=== PATIENT | female | born 1985 | race Caucasian/White ===

== ENCOUNTER 2016-12-03 21:01 | Observation (INO) | payer OTHER ==
[~2016-12-03] VITALS: Ht 165.1 cm; Wt 148.1 kg
[~2016-12-03 21:01] MED LIST: FERR1TAB25 PO
--- NOTE | 2016-12-03 21:04 | NUR ---
DR DR SHINE AT BEDSIDE
[2016-12-03] MEDS ORDERED: NORMAL SALINE 1,000 ML IV ONE (21:09)
--- NOTE | 2016-12-03 21:10 | ERPDOC ---
Departure Disposition Decision Date: Dec 03, 2016 Disposition Decision Time: 22:30 Disposition: 02 [place] [facility] [place] [facility] [place] Impression Impression: Primary Impression: Sinus tachycardia Severity: Moderate Condition: Improved Seen By: Physician only Referrals: KRISTA BALIEY MD (Family) Problems/Meds/Labs Reviewed?: Yes Medications reviewed and manag: Yes Follow up care ordered?: Yes Mental Status: Alert, Oriented Scripts Metoprolol Tartrate (Metoprolol Tartrate) 25 Mg Tablet 25 MG PO BIDWM, #60 TAB 6 Refills Prov: FERNANDO GARCIA APRN 12/04/16 Cephalexin (Cephalexin) 500 Mg Capsule 500 MG PO Q12HR for 7 Days, #14 CAP Prov: FERNANDO GARCIA APRN 12/04/16 HPI - Cardiac General Stated Complaint: FAST HEART RATE Time Seen by Provider: 21:03 Source: patient, family Exam Limitations: no limitations HPI - Cardiac General Initial Comments 31yo woman presents to the ER for a fast heart rate. Pt was at home eating, when she had a sudden onset of nausea, palpitations, and a 'funny feeling'. Pt has a h/o tachycardia once before - is not sure how it was treated, but has not had a recurrence since. Denies EtOH and drugs. Occurred At: home Onset/Timing: Rapid Duration: 1 hr Activities at Onset/Context: during/after eating Prior CP/Workup: other Nitro Today/Relief: no nitro taken today Aspirin Today: contraindicated Associated Symptoms: malaise, shortness of breath, weakness Hx of Similar Symptoms: Yes Allergies: Coded Allergies: No Known Allergies (Unverified , 07/16/12) Past History Past Medical History Metabolic: hypertension Cardiac: PSVT Female: UTI Musculoskeletal: back pain Review of Systems Constitutional Constitutional: weakness Cardiovascular Cardiac: dyspnea on exertion Rhythm/Rate: palpitations, tachycardia All other Systems All Other Systems: Reviewed and Negative Physical Exam General General Nourishment: well nourished, well developed, appears stated age, adult , obese, acute distress General Body Habitus: well groomed Vitals and Pain First Documented Vital Signs Date Time Temp Pulse Resp B/P Pulse Ox O2 Delivery O2 Flow Rate FiO2 12/03/16 21:03 100.0 227 20 166/81 98 Room Air 12/03/16 21:07 2.00 Weight: Kilograms: Height (feet): Height (inches): Triage Pain Scale: RN VS reviewed by Provider: Yes Normal Exams: Head: Normocephalic w/o trauma Eyes: Pupils are PERRLA w/ EOMI, No scleral icterus, irritation ENMT: No facial trauma, nasal exudates, pharyngeal erythema Neck: Full range of motion, without adenopathy, JVD Chest/Resp: Clear all traore, with good airflow, and symmetry bilaterally Abdomen: Bowel sounds positive, soft, non-tender, non-distended Lymphatic: No lymphadenopathy Musculoskeletal: No tenderness, or deformity noted Integumentary: No rashes, hives, or bruising noted Neurologic: Patient is alert, and oriented Psychiatric: Patient exhibits, appropriate attention Cardiovascular (brief) Cardiac: FOUND: regular rhythm, NOT FOUND: click, gallop, murmur, pedal edema, peripheral edema, regular rate, rub Capillary Refill: <2 sec Pulses: all distal extremities, equal, strong Differential Diagnoses Considering: Acute NH, Anxiety/Panic, Angina, Atrial Fibrillation, Pericarditis , PSVT, Pulmonary Edema, Pulmonary Embolus, WPW Progress Results/Orders Orders Procedure Category Date Status Time Cbc W/Auto LAB 12/03/16 Complete Diff-Reflex Manual 21:09 Bmp - Basic Metabolic LAB 12/03/16 Complete Panel 21:09 Tsh - Thyroid Stim LAB 12/03/16 Complete Hormone 21:09 Troponin I W LAB 12/03/16 Complete Hemolysis Index 21:09 Magnesium LAB 12/03/16 Complete 21:09 EKG EKG 12/03/16 Taken 21:09 Iv Lock (Ed Only) EDM 12/03/16 Transmitted 21:09 Nothing By Mouth (Ed EDM 12/03/16 Transmitted Only) 21:09 Oxygen Administration EDM 12/03/16 Transmitted 21:09 Normal Saline (Normal PHA 12/03/16 Complete Saline Iv) 21:09 Diltiazem (Cardizem*) PHA 12/03/16 Complete Iv Bolus (Cardizem 21:15 Chest 1 View RAD 12/03/16 Resulted 21:09 EKG EKG 12/03/16 Taken 21:22 Adenosine (Adenocard) PHA 12/03/16 Complete 21:30 D-Dimer LAB 12/03/16 Complete 21:23 Lactate - Lactic Acid LAB 12/03/16 Complete Lactate - Lactic Acid LAB 12/04/16 Complete 01:53 Blood Culture EPI 12/03/16 In Process 21:25 Ceftriaxone I.V. (Er PHA 12/03/16 Complete Use Only) (Rocephin 21:30 Enoxaparin (Lovenox) PHA 12/03/16 Complete 21:30 LAB 12/03/16 Complete Qualitative, Serum 21:30 UA, LAB 12/03/16 Complete Dip&Micro(Complete) & 22:08 Urine Culture EPI 12/03/16 Complete 22:16 [address] In Facility: ED ADM 12/03/16 Transmitted Lab Results Laboratory Tests Test 12/03/16 21:24 12/03/16 21:25 12/03/16 22:08 D-Dimer 197NG/ML Plasma Lactate 2.2MMOL/L Human Chorionic Gonadotropin, Qual Negative White Blood Count 13.3T/MM3 Red Blood Count 4.80M/MM3 Hemoglobin 13.0GM/DL Hematocrit 40.2% Mean Corpuscular Volume 83.8UM3 Mean Corpuscular Hemoglobin 27.1UUG Mean Corpuscular Hemoglobin Concent 32.3GM/DL RDW Standard Deviation 45.1FL Platelet Count 315T/MM3 Mean Platelet Volume 10.7UM3 Immature Granulocyte % (Auto) 0.4% Neutrophils (%) (Auto) 56.7% Lymphocytes (%) (Auto) 33.4% Monocytes (%) (Auto) 7.7% Eosinophils (%) (Auto) 1.4% Basophils (%) (Auto) 0.4% Absolute Immature Granulocyte (auto 0.05T/MM3 Absolute Neutrophils (auto) 7.5T/MM3 Absolute Lymphocytes (auto) 4.4T/MM3 Absolute Monocytes (auto) 1.0T/MM3 Absolute Eosinophils (auto) 0.2T/MM3 Absolute Basophils (auto) 0.1T/MM3 Turbidity < 20 Sodium Level 143MEQ/L Potassium Level 3.9MEQ/L Chloride Level 103MEQ/L Carbon Dioxide Level 23MEQ/L Anion Gap 17MEQ/L Blood Urea Nitrogen 16.0MG/DL Creatinine 0.7MG/DL Glomerular Filtration Rate Calc 96 BUN/Creatinine Ratio 23RATIO Glucose Level 165MG/DL Calculated Osmolality 280MOSM/KG Calcium Level 9.6MG/DL Magnesium Level 2.0MG/DL Icterus Index < 2 Troponin I < 0.012ng/ml Thyroid Stimulating Hormone (TSH) 1.96MIU/L Chemistry Specimen Hemolysis < 15 Urine Collection Type Cleancatch-midstream Urine Color Tracie Urine Turbidity Sl cloudy Urine pH 5.5 Urine Specific [place] <=1.005 Urine Protein Negative Urine Glucose (UA) Negative Urine Ketones Negative Urine Blood Negative Urine Nitrite Negative Urine Bilirubin Negative Urine Urobilinogen 0.2EU/DL Urine Leukocyte Esterase 2+ Urine RBC 0-1/HPF Urine WBC 5-10/HPF Urine Squamous Epithelial Cells 10-20 Urine Bacteria Trace Urine Culture Indicated Cult not indicated Medications Current ED Medications Sodium Chloride (Normal Saline IV) 1,000 ml @ 0 mls/hr Q0M ONCE IV Last administered on 12/03/16 21:25; Start 12/03/16 at 21:09; Stop 12/03/16 at 21:11; Status DC Diltiazem HCl (Cardizem) 25 mg O ONCE IV Last administered on 12/03/16 21:16; Start 12/03/16 at 21:15; Stop 12/03/16 at 21:16; Status DC Adenosine 6 mg 6 mg O ONCE IV Last administered on 12/03/16 21:15; Start at 21:30; Stop 12/03/16 at 21:31; Status DC Ceftriaxone Sodium/Sodium Chloride (Rocephin/NS) 100 ml @ 100 mls/hr O ONCE IV Last administered on 12/03/16 21:51; Start 12/03/16 at 21:30; Stop 12/03/16 at 22:29; Status DC Enoxaparin Sodium (Lovenox) 120 mg O ONCE SQ Last administered on 12/03/16 21: 40; Start 12/03/16 at 21:30; Stop 12/03/16 at 21:31; Status DC Progress Progress Pt initially presented to the ER in sinus tachycardia to 230 BPMs. 6mg adenocard did not slow pts rate at all. Diltiazem was already drawn, so 25mg was given immediately after adenocard with drop in pts rate to 130 BPM as soon as diltiazem was fully infused. Pts rate continued to decrease to 120s. Contacted Dr. Reynoso, who agreed to admit pt and continue workup/treatment. EKG EKG #1: Rate: >100 Rhythm: sinus [place]: normal QRS: normal Intervals: normal ST/T: non-specific changes Interpreted by: signing physician EKG #2: Rate: >100 Rhythm: sinus [place]: normal QRS: normal Intervals: normal ST/T: non-specific changes Interpreted by: signing physician Consult/PCP Consult/PCP : Physician Contacted: Dr. Reynoso Time Called: 22:36 Time of first response: 22:38 Type of discussion: Admit Discussion/PCP Discussion Details Will admit pt. VIRAL SHINE DO Dec 03, 2016 21:09
[2016-12-03] MEDS ORDERED: DILTIAZEM 25mg/5ml INJECTION IV ONE (21:15)
--- NOTE | 2016-12-03 21:15 | NUR ---
MED/EDUCATION REVIEWED ADENOSINE WITH PT. THIS RN PREPARING TO ADMINISTER WITH ASSISTANCE OF WILLIAN CARRERA RN FLUSH. DR SHINE REMAINS AT BEDSIDE.
--- NOTE | 2016-12-03 21:16 | NUR ---
STATUS PTS HR 204-198, THEN RETURNS TO 206. PT EDUCATED REGARDING CARDIZEM. UNDERSTANDING VERBALIZED.
--- NOTE | 2016-12-03 21:21 | NUR ---
STATUS PTS HR 129, SINUS TACH. DR MAY REMAINS AT BEDSIDE.
[2016-12-03] MEDS ORDERED: CEFTRIAXONE I.V. (ER USE ONLY) 1 G in NORMAL SALINE 100 ML IV ONE (21:30)
[2016-12-03] MEDS ORDERED: ADENOSINE 6mg/2ml INJECTION vl IV ONE (21:30)
[2016-12-03] MEDS ORDERED: ENOXAPARIN 120 MG/0.8 ML INJECTION SQ ONE (21:30)
--- NOTE | 2016-12-03 21:31 | NUR ---
XRY PORTABLE XRY AT BEDSIDE.
--- NOTE | 2016-12-03 21:35 | NUR ---
TOOL DESIGNER AT BEDSIDE FOR BLOOD CX VENIPUNCTURE.
[2016-12-03 21:39] LABS: BASOPHILS # (AUTO) 0.1 T/MM3 (0-0.2); BASOPHILS % (AUTO) 0.4 % (0-2); EOSINOPHILS # (AUTO) 0.2 T/MM3 (0-0.5); EOSINOPHILS % (AUTO) 1.4 % (0-4); HCT - HEMATOCRIT 40.2 % (36-46); IMMATURE GRANULOCYTE # (AUTO) 0.05 T/MM3 (0.00-0.03); IMMATURE GRANULOCYTE % (AUTO) 0.4 % (0.0-0.5); LYMPHOCYTES # (AUTO) 4.4 T/MM3 (1-4.8); LYMPHOCYTES % (AUTO) 33.4 % (23-45); MEAN CORPUSCULAR HGB 27.1 UUG (26-34); MEAN CORPUSCULAR HGB CONC(MCHC 32.3 GM/DL (31-37); MEAN CORPUSCULAR VOLUME 83.8 UM3 (80-100); MEAN PLATELET VOLUME 10.7 UM3 (9.4-12.4); MONOCYTES % (AUTO) 7.7 % (0-9.0); NEUTROPHILS #(AUTO)-ABSOLUTE 7.5 T/MM3 (1.8-7.7); NEUTROPHILS % (AUTO) 56.7 % (33-66); WBC - WHITE BLOOD COUNT 13.3 T/MM3 (4.5-11.0)
[2016-12-03] MEDS ORDERED: METF10002 PO (21:54)
[2016-12-03] MEDS ORDERED: ESCI20TA30 PO (21:54)
[2016-12-03] MEDS ORDERED: LORA1TAB3 PO (21:54)
[2016-12-03] MEDS ORDERED: LISI1TAB11 PO (21:54)
[2016-12-03 21:56] LABS: ANION GAP 17 MEQ/L (5-15); BUN/CREATININE RATIO 23 RATIO (6-26); CALCIUM 9.6 MG/DL (8.4-10.2); CHLORIDE 103 MEQ/L (98-107); CO2 - CARBON DIOXIDE 23 MEQ/L (22-30); CREATININE 0.7 MG/DL (0.7-1.2); GLOMERULAR FILTRATION RATE 96; GLUCOSE 165 MG/DL (65-110); POTASSIUM 3.9 MEQ/L (3.6-5); SODIUM 143 MEQ/L (134-144)
[2016-12-03] MEDS ORDERED: BUTA-253 (21:56)
--- NOTE | 2016-12-03 22:08 | NUR ---
UP TO COMMODE/UA PT ASSISTED TO BEDSIDE COMMODE. WITH STANDING AND CLEANSING SELF PRIOR TO URINATING, PT'S HR INCREASED TO 157. PT VOIDED 400ML YELLOW CLOUDY URINE. SPECIMEN SENT TO LAB.
--- NOTE | 2016-12-03 22:08 | NUR ---
STATUS PT DENIES DIZZINESS, NAUSEA, SHORTNESS OF BREATH, PAIN AT THIS TIME.
[2016-12-03 22:12] LABS: BLOOD, URINE NEGATIVE (NEGATIVE); COLOR,URINE AMBER (YELLOW); LEUKOCYTE ESTERASE ,URINE 2+ (NEGATIVE); NITRITE,URINE NEGATIVE (NEGATIVE); UROBILINOGEN,URINE 0.2 EU/DL (NORMAL)
--- NOTE | 2016-12-03 22:16 | NUR ---
REPORT GIVEN TO SUE PERAZA. CARE ASSUMED.
[2016-12-03 22:21] LABS: BACTERIA,URINE TRACE (NEGATIVE); RBC,URINE 0-1 /HPF (0-3)
[2016-12-03 22:26] LABS: THYROID STIM HORMONE-TSH 1.96 MIU/L (0.47-4.68)
--- NOTE | 2016-12-03 23:20 | NUR ---
REPORT GIVEN TO RAINA ROGERS AT THIS TIME.
[2016-12-03 23:35] VITALS: BP 152/77; PULSE 121; RESP 18; TEMP 97.9; O2SAT 98; Ht 165.1 cm; Wt 148.1 kg
--- NOTE | 2016-12-03 23:35 | NUR ---
ARRIVAL PT ARRIVED TO ROOM 135 VIA ER CART, AMBULATED FROM CART TO BED. WILL CONTINUE TO MONITOR.
--- NOTE | 2016-12-03 23:35 | NUR ---
JIN PT IS TRANSFERRED VIA CART TO MEDICAL UNIT ROOM 135 AT THIS TIME, REMAINS ON MONITOR THROUGHOUT TRANSPORT. RAINA ROGERS IS AT BEDSIDE TO RESUME CARE ON ARRIVAL.
[2016-12-04] MEDS ORDERED: ZOLPIDEM 10 MG TABLET PO PRN (00:15)
[2016-12-04] MEDS ORDERED: DiphenhydrAMINE 25 MG CAPSULE PO PRN (00:15)
[2016-12-04] MEDS ORDERED: PRN ORDERS MC (00:15)
[2016-12-04] MEDS ORDERED: ACETAMINOPHEN 325 MG TABLET PO PRN (00:15)
[2016-12-04] MEDS ORDERED: ONDANSETRON 4 MG TABLET PO PRN (00:15)
--- NOTE | 2016-12-04 00:15 | NUR ---
RICKY NOTIFIED NOTIFIED Tavo GARCIA APRN THAT PT WAS ADMITTED AND NO ORDERS WERE IN PLACE. MEDS ORDERED, TELEMETRY, NO SCD'S AT THIS TIME, PT CAN HAVE A DRINK AND A SNACK AND THEN NPO AFTER THIS FOR POSSIBLE PROCEDURE IF NECESSARY. WILL CONTINUE TO MONITOR.
[2016-12-04 06:04] LABS: ANION GAP 8 MEQ/L (5-15); BUN/CREATININE RATIO 23 RATIO (6-26); CHLORIDE 108 MEQ/L (98-107); CO2 - CARBON DIOXIDE 29 MEQ/L (22-30); CREATININE 0.8 MG/DL (0.7-1.2); GLOMERULAR FILTRATION RATE 83; GLUCOSE 124 MG/DL (65-110); MAGNESIUM 2.3 MG/DL (1.6-2.3); POTASSIUM 4.1 MEQ/L (3.6-5); SODIUM 145 MEQ/L (134-144)
--- NOTE | 2016-12-04 06:20 | NUR ---
Shift Summary Pt alert and oriented x3, vital signs have been stable on room air. After dose of Metoprolol pt heart rate has decreased and maintained in the high 80s to mid 90s. Pt has slept throughout the shift. Will continue to monitor.
[2016-12-04 07:48] VITALS: BP 141/94; PULSE 76; RESP 18; TEMP 96.6; O2SAT 100
[2016-12-04 08:15] VITALS: PULSE 76; RESP 18
[2016-12-04] MEDS: METOPROLOL XL 25 MG TABLET PO SCH ×2 (08:28)
[2016-12-04] MEDS ORDERED: ASPIRIN *EC* 81mg TABLET PO SCH (09:00)
[2016-12-04 09:43] VITALS: BP 141/87; PULSE 86; O2SAT 98
--- NOTE | 2016-12-04 11:07 | NUR ---
CM THIS WORKER MET WITH PT AT THIS TIME. , SISTER AND SON PRESENT AT THIS TIME. PT REPORTED THAT SHE WAS PLANNING TO RETURN HOME WHEN DISCHARGED. PT DENIED ANY NEEDS AT THIS TIME. PT REPORTED THAT SHE HAD GOOD INSURANCE TO COVER MEDICATIONS. THIS WORKER PROVIDED CONTACT INFORMATION FOR PT AND ENCOURAGED TO CONTACT THIS WORKER WITH ANY NEEDS.
[2016-12-04 13:17] LABS: AMPHETAMINE SCREEN,URINE NEGATIVE; BARBITURATE SCREEN,URINE POSITIVE; BENZODIAZEPINES SCREEN,URINE POSITIVE; METHAMPHETAMINE SCREEN, URINE NEGATIVE
[2016-12-04 13:18] LABS: CANNABINOID SCREEN,URINE NEGATIVE; COCAINE SCREEN,URINE NEGATIVE; METHADONE SCREEN, URINE NEGATIVE; OPIATE SCREEN,URINE NEGATIVE; PHENCYCLIDINE SCREEN,URINE NEGATIVE; TRICYCLIC ANTIDEPRESSANT,URINE NEGATIVE
[2016-12-04 14:58] VITALS: BP 147/76; PULSE 92; O2SAT 97
[2016-12-04 15:41] VITALS: BP 143/90; PULSE 86; RESP 16; TEMP 98.3; O2SAT 98
--- NOTE | 2016-12-04 16:01 | HPPDOC ---
HPI - Adult Date DATE: 12/04/16 TIME: 15:21 General Date of Admission Date of Admission: Dec 03, 2016 at 22:41 Chief Complaint: Palpitations History of Present Illness This is a 31 ptient with a history of HTN, PCOS for which she takes metformin, and anxiety/ depression. She was eating dinner out last night when she suddenly felt a rapid heart rate, lightheadedness, dizziness, nausea, SOB and weakness. She denies chest pain, abdominal pain, recent sickness. She denies drugs or alcohol. This has happened once before in 2005, Her brought her into the [facility] [place] ER. In ER she was found to be in Sinus tachycardia, HR up to 240 per pt's . Per ER notes: Pt initially presented to the ER in sinus tachycardia to 230 BPMs. 6mg adenocard did not slow pts rate at all. Diltiazem was already drawn, so 25mg was given immediately after adenocard with drop in pts rate to 130 BPM as soon as diltiazem was fully infused. Pts rate continued to decrease to 120s. On admit we started metoprolol and held her lisinopril/HCTZ to monitor BP as well as HR. the next morning SBP 140's and HR 70's to 90's. Therefore we will add back her lisinopril /HCTZ for which she takes for BP and swelling in legs. and keep her on the metoprolol. Past Medical History Past Medical History Metabolic: hypertension Cardiac: PSVT Female: UTI, other (PCOS) Musculoskeletal: back pain Psychological: anxiety, depression Current Medications Home Meds Active Scripts Metoprolol Tartrate (Metoprolol Tartrate) 25 Mg Tablet, 25 MG PO BIDWM, #60 TAB 6 Refills Prov:FERNANDO GARCIA [employer] TECHNICAL OFFICER 12/04/16 Cephalexin (Cephalexin) 500 Mg Capsule, 500 MG PO Q12HR for 7 Days, #14 CAP Prov:FERNANDO GARCIA FI[employer] TECHNICAL OFFICER 12/04/16 Reported Medications Butalb/Acetaminophen/Caffeine (Xsjnoi-Iorsspku-Ivyw 50-325-40) 1 Each Tablet, Y for CLUSTER HEADACHES 12/03/16 Lorazepam (Lorazepam) 1 Mg Tablet, 1 TAB PO PRN Y for ANXIETY, TAB 12/03/16 Escitalopram Oxalate (Escitalopram Oxalate) 20 Mg Tablet, 1 TAB PO DAILY, TAB 12/03/16 Metformin HCl (Metformin HCl) 1,000 Mg Tablet, 1 TAB PO BIDWM, TAB Take one tablet, by mouth, twice daily with meals 12/03/16 Lisinopril/Hydrochlorothiazide (Lisinopril-Hctz 20-12.5 mg Tab) 1 Each Tablet, 2 TAB PO DAILY, TAB Take two (20/12.5 mg) tabs one time a day. 12/03/16 Discontinued Reported Medications Ferrous Sulfate (Iron) 1 Tab Tablet, 1 TAB PO DAILY 07/16/12 Allergies: Coded Allergies: No Known Allergies (Unverified , 07/16/12) Family History FOUND: hypertension, other (fast HR) Family History Comments Mother is 55 A/W, Father 57 A/W has HTN and fast HR occasionally Vaccines No Social History Smoking Status: Never smoker Does patient use chewing tobac: No Second Hand Exposure: No Substance Use Type: does not use Alcohol Intake: occasionally (a couple of times a year. 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 Does not sit 8h Advance Directives: No DPOA for Healthcare Only Review of Systems Constitutional: REPORTS: dizziness, insomnia, weakness, DENIES: chills, fever Eyes General: DENIES: burning Vision: DENIES: blurring ENMT Balance: DENIES: vertigo Mouth/Throat: DENIES: sore throat Cardiovascular DENIES: chest pain, orthopnea, paroxysmal nocturnal dysp Rhythm/Rate: palpitations, tachycardia Vascular: pedal edema Pulmonary Respiratory: dyspnea (with this episode of tachycardia), DENIES: cough GI Upper Abdomen: nausea (with this episode of tachycardia. ) Lower Abdomen: DENIES: blood in stool, diarrhea General: DENIES: dysuria, hematuria : (1) Musculoskeletal General: DENIES: cramps, pain Lumbar: pain Integumentary Skin: DENIES: rash Nails: DENIES: cupping, pitting Neurological General: weakness, DENIES: fainting, syncope, vertigo Psychiatric Psychiatric: anxiety, depression Hematologic/Lymphatic DENIES: easy bruising Physical Exam General General Nourishment: well nourished, well developed, obese General Body Habitus: well groomed Vital Signs Vital Signs Date Time Temp Pulse Resp B/P Pulse Ox O2 Delivery O2 Flow Rate FiO2 12/04/16 14:58 92 147/76 97 Room Air 12/04/16 08:15 18 12/04/16 07:48 96.6 12/03/16 23:40 2.00 Height (Feet): 5 Height (Inches): 5.00 Eyes Brief: NOT FOUND: scleral icterus ENMT Brief: FOUND: hearing intact, mucosa moist, normal dentition Neck Brief: FOUND: midline, NOT FOUND: JVD, carotid bruits Respiratory Brief: FOUND: clear all traore, equal bilaterally Cardiovascular (brief) Cardiac Brief: FOUND: pedal edema (mild), regular rate, regular rhythm, NOT FOUND: murmur Capillary Refill: <2 sec, other (pedal pulses palpable) Abdomen (brief) Abdominal Brief: FOUND: BS normo active x4, soft, NOT FOUND: tender (brief) Female Brief: NOT FOUND: bleeding Integumentary (brief) Integumentary Brief: FOUND: pink, warm Neurologic (brief) Neurological Brief: FOUND: motor, sensory, NOT FOUND: facial droop, ptosis Neurologic RN Documented GCS Eye Opening: Verbal: Motor: Total: Psychiatric (brief) FOUND: alert, attentive, normal affect, oriented Laboratory Laboratory Tests Test 12/03/16 21:24 12/03/16 21:25 12/03/16 22:08 12/04/16 02:10 D-Dimer 197NG/ML Plasma Lactate 2.2MMOL/L 1.4MMOL/L Human Chorionic Gonadotropin, Qual Negative White Blood Count 13.3T/MM3 Red Blood Count 4.80M/MM3 Hemoglobin 13.0GM/DL Hematocrit 40.2% Mean Corpuscular Volume 83.8UM3 Mean Corpuscular Hemoglobin 27.1UUG Mean Corpuscular Hemoglobin Concent 32.3GM/DL RDW Standard Deviation 45.1FL Platelet Count 315T/MM3 Mean Platelet Volume 10.7UM3 Immature Granulocyte % (Auto) 0.4% Neutrophils (%) (Auto) 56.7% Lymphocytes (%) (Auto) 33.4% Monocytes (%) (Auto) 7.7% Eosinophils (%) (Auto) 1.4% Basophils (%) (Auto) 0.4% Absolute Immature Granulocyte (auto 0.05T/MM3 Absolute Neutrophils (auto) 7.5T/MM3 Absolute Lymphocytes (auto) 4.4T/MM3 Absolute Monocytes (auto) 1.0T/MM3 Absolute Eosinophils (auto) 0.2T/MM3 Absolute Basophils (auto) 0.1T/MM3 Turbidity < 20 Sodium Level 143MEQ/L Potassium Level 3.9MEQ/L Chloride Level 103MEQ/L Carbon Dioxide Level 23MEQ/L Anion Gap 17MEQ/L Blood Urea Nitrogen 16.0MG/DL Creatinine 0.7MG/DL Glomerular Filtration Rate Calc 96 BUN/Creatinine Ratio 23RATIO Glucose Level 165MG/DL Calculated Osmolality 280MOSM/KG Calcium Level 9.6MG/DL Magnesium Level 2.0MG/DL Icterus Index < 2 Troponin I < 0.012ng/ml Thyroid Stimulating Hormone (TSH) 1.96MIU/L Chemistry Specimen Hemolysis < 15 Urine Collection Type Cleancatch-midstream Urine Color Tracie Urine Turbidity Sl cloudy Urine pH 5.5 Urine Specific [place] <=1.005 Urine Protein Negative Urine Glucose (UA) Negative Urine Ketones Negative Urine Blood Negative Urine Nitrite Negative Urine Bilirubin Negative Urine Urobilinogen 0.2EU/DL Urine Leukocyte Esterase 2+ Urine RBC 0-1/HPF Urine WBC 5-10/HPF Urine Squamous Epithelial Cells 10-20 Urine Bacteria Trace Urine Culture Indicated Cult not indicated Test 12/04/16 04:52 12/04/16 12:56 Turbidity < 20 Sodium Level 145MEQ/L Potassium Level 4.1MEQ/L Chloride Level 108MEQ/L Carbon Dioxide Level 29MEQ/L Anion Gap 8MEQ/L Blood Urea Nitrogen 18.0MG/DL Creatinine 0.8MG/DL Glomerular Filtration Rate Calc 83 BUN/Creatinine Ratio 23RATIO Glucose Level 124MG/DL Calculated Osmolality 282MOSM/KG Calcium Level 9.0MG/DL Magnesium Level 2.3MG/DL Icterus Index < 2 Troponin I < 0.012ng/ml Chemistry Specimen Hemolysis < 15 Urine Opiates Screen NegativeNG/ML Urine Oxycodone Screen NegativeNG/ML Urine Methadone Screen NegativeNG/ML Urine Propoxyphene Screen NegativeNG/ML Urine Barbiturates Screen PositiveNG/ML Urine Tricyclic Antidepressants NegativeNG/ML Urine Phencyclidine Screen NegativeNG/ML Urine Amphetamines Screen NegativeNG/ML Urine Methamphetamines Screen NegativeNG/ML Urine Benzodiazepines Screen PositiveNG/ML Urine Cocaine Screen NegativeNG/ML Urine Cannabinoids Screen NegativeNG/ML Urine Drug Screen Confirmation Sent out EKG 12/03/2016 at 2116: ST, HR 204, NS ST T wave abnormality. 12/03/2016 at 2122: ST, HR 127, NS ST T wave abnormality Radiology CXR: heart size normal, lungs clear. Assessment & Plan Problems: (1) Sinus tachycardia Status: Acute Assessment & Plan: She received adenosine in ER which did not lower her HR. She received Cardizem IV which brought her HR from 230's to 120's. Add metoprolol tartrate 25mg po BID. This has brought her HR 70's to 90's. If this happens again: Instructed to try to bear down, coughing. She may take an extra metoprolol. Unsure if this is due to UTI. since it happens infrequently , last time in 2005, no further treatment at this time. Will have her F/U in office for an echo. (2) HTN (hypertension) Status: Chronic Assessment & Plan: Since her SBP 140's on metoprolol, will add back her lisinopril / HCTZ which she states has started recently. she is in agreement with this plan. the HCTZ has helped her swelling in her legs. (3) PCOS (polycystic ovarian syndrome) Status: Chronic Assessment & Plan: and obesity, cont metformin. per PCP. (4) Anxiety and depression Status: Chronic Assessment & Plan: cont escitalopram per PCP. (5) Obesity Status: Chronic Assessment & Plan: [facility] she is going to [facility]. (6) Insomnia Status: Chronic Assessment & Plan: Cont lorazepam prn for sleep per PCP. (7) UTI (urinary tract infection) Status: Acute Assessment & Plan: Prescribe cephalexin 500mg po BID x7 days. F/U with Dr. Lewis for repeat U/A in 7 to 10 days. DVT Prophylaxis: Lovenox Code Status Full Code Hospital Course Summary Disclaimer Dr. Reynoso did not see pt on this day. I have discussed ECG, labs, VS and meds with him and he agrees with this plan of care. Hospital Course Summary We will DC pt to home with . Pt is in SR. BP and HR stable. labs unremarkable. Except WBC 13 and UTI + gram +. she is stable for DC. Scripts for metoprolol tartrate 25mg po BID and cephalexin 500mg po BID x7 days given to pt. She will f/u with Dr Carnes in 2 to [address] Lewis in 2 weeks. Check her BP 2 to 3 x a week and bring to appts. FERNANDO GARCIA APRN Dec 04, 2016 15:24
[2016-12-04] MEDS ORDERED: CEPH500C2 PO (16:15)
[2016-12-04] MEDS ORDERED: METO25TA6 PO (16:24)
--- NOTE | 2016-12-04 16:48 | NUR ---
Discharge Pt discharged at this time via ambulatory status through the main entrance in the company of an adult. IV catheter DC'd, catheter tip intact. VS stable on RA. Prescriptions given to Pt to take to preferred pharmacy. Discharge packet and instructions gone over with pt. This RN discussed medications, activity, restrictions, diet, and follow up appt. Pt verbalized understanding.
[2016-12-04] MEDS ORDERED: CEPHALEXIN 500 MG CAPSULE PO SCH (21:00)
--- NOTE | 2016-12-05 10:05 | DI ---
Indication: ITS.REASON: tachycardia PROCEDURE: CHEST 1 VIEW: Encounter: Initial Comparison: None FINDINGS: The lungs are clear. There is no abnormal airspace opacity, pleural effusion or pneumothorax identified. The heart size, pulmonary vasculature and mediastinum are within normal limits. No significant skeletal abnormality is seen. IMPRESSION: No acute cardiopulmonary abnormality. .
== END 2016-12-04 16:48 | disposition home or self-care (01) ==
LOC: ED 21:01 → MED 22:41 → EDHOLD 22:41
PROVIDERS: ADMIT Internal Medicine Cardiovascular Disease; ATTEND Internal Medicine Cardiovascular Disease
DX: R00.0 Tachycardia, unspecified (principal); I10 Essential (primary) hypertension; E28.2 Polycystic ovarian syndrome; N39.0 Urinary tract infection, site not specified; E66.9 Obesity, unspecified; Z68.43 Body mass index [BMI] 50.0-59.9, adult; R06.09 Other forms of dyspnea; F41.8 Other specified anxiety disorders; F51.04 Psychophysiologic insomnia; Z87.440 Personal history of urinary (tract) infections; Z79.84 Long term (current) use of oral hypoglycemic drugs; Z79.899 Other long term (current) drug therapy
CPT/HCPCS: 36415; 71010; 80048; 80306; 81001; 83605; 83735; 84443; 84484; 84703; 85025; 85379; 87040; 87077; 87086; 87186; 93005; 96365; 96372; 96375; 99218; 99284; J0153; J0696; J1650; J7030; J7050